=== PATIENT | female | born 1965 | race Caucasian/White ===

== ENCOUNTER 2020-03-27 10:29 | Outpatient (RCR) | payer OTHER, SELFPAY | END 2020-06-16 14:12 | disposition home or self-care (01) | LOC: ANHDMC 10:29 | PROVIDERS: PCP Family Medicine; Visit Provider Physician Assistant | DX: E10.65 Type 1 diabetes mellitus with hyperglycemia (principal); Z71.89 Other specified counseling | CPT/HCPCS: G0108 ==

== ENCOUNTER 2020-07-08 15:27 | Outpatient (RCR) | payer OTHER, SELFPAY | END 2020-07-08 17:40 | disposition home or self-care (01) | LOC: ANHDMC 15:27 | PROVIDERS: PCP Family Medicine; Visit Provider Physician Assistant | DX: E10.65 Type 1 diabetes mellitus with hyperglycemia (principal); Z71.89 Other specified counseling | CPT/HCPCS: G0108 ==

== ENCOUNTER 2021-02-02 15:42 | Outpatient (RCR) | payer OTHER, SELFPAY | END 2021-02-02 17:14 | disposition home or self-care (01) | LOC: ANHDMC 15:42 | PROVIDERS: PCP Family Medicine; Visit Provider Physician Assistant | DX: E10.65 Type 1 diabetes mellitus with hyperglycemia (principal); Z71.89 Other specified counseling | CPT/HCPCS: G0108 ==